=== PATIENT | female | born 1960 | race Caucasian/White ===

== ENCOUNTER 2016-12-29 20:19 | Emergency (ER) | payer BC ==
--- NOTE | 2016-12-29 21:25 | ERNOTE ---
Abdominal HPI - Narrative Date of Service: 12/29/16 - General Chief Complaint: Constipation Time Seen by Provider: 12/29/16 21:12 Source: patient Exam Limitations: no limitations - Immun/Allergies/Home Medications Immunizatons: IMMUNIZATION HX Immunizations Up to Date Yes History of Influenza Vaccine Yes Hx Pneumococcal Vaccination Yes Allergies/Adverse Reactions: Allergies Sulfa (Sulfonamide Antibiotics) Adverse Reaction (Verified 12/29/16 20:33) Home Medications: HOME MEDICATIONS Aspirin [Aspir-Low] 81 mg PO DAILY 12/29/16 [Last Taken Unknown] Calcium Carb/Vitamin D3/Vit K1 [Calcium + D Soft Chewable Tab] 1 each PO DAILY 12/29/16 [Last Taken Unknown] Cyclobenzaprine HCl [Flexeril] 10 mg PO TID PRN 12/29/16 [Last Taken Unknown] Metoprolol Succinate [Toprol Xl] 50 mg PO DAILY 12/29/16 [Last Taken Unknown] Tramadol HCl [Rybix Odt] 50 mg PO PRN PRN 12/29/16 [Last Taken Unknown] - History of Present Illness Narrative: Pt. comes in with c/o constipation that started approximately 6 hours ago when she had two small hard BMs and then still eels that she has to have a BM but is not able to pass any more stool. Pt. denies any NVD, fever, recent illness, hemorrhoids, abd. pain, or history of constipation. Pt. states that her LBM before today was yesterday and it was normal for her. Review of Systems - Review of Systems Constitutional: Present: no symptoms reported. Absent: recent illness, fever, chills, weakness, fatigue, malaise EYE: Present: no symptoms reported ENT: Present: no symptoms reported Respiratory: Present: no symptoms reported. Absent: shortness of breath, cough , wheezing Cardiology: Present: no symptoms reported. Absent: chest pain, palpitations, edema Gastrointestinal/Abdominal: Present: constipation. Absent: nausea, vomiting, diarrhea, abdominal pain Genitourinary: Present: no symptoms reported. Absent: frequency, pain, dysuria , decreased urinary output Musculoskeletal: Present: no symptoms reported. Absent: back pain, joint pain Skin: Present: no symptoms reported. Absent: rash, change in color Neurological: Present: no symptoms reported. Absent: headache, dizziness/light- headedness, weakness, numbness, tingling All Other Systems: All systems neg except as marked - Patient's Past Medical History Patient History - Medical: No pertinent hx Patient History - Cardiac/Respiratory: CPAP/BiPAP Home Use, Other Patient History - Cancer: No Hx of Cancer Patient History - Surgical Procedures: Cholecystectomy, Other Patient History - Other: None LMP (females 10-50): 15 years ago - Social History Living Situations: home Psych History: No pertinent hx Smoking Status: Never smoker Alcohol Use: none Drug Use: none - Immunizations Immunizations Up to Date: Yes Hx Pneumococcal Vaccination: Yes History of Influenza Vaccine: Yes Physical Exam - Physical Exam General Appearance: Present: wd/wn, alert, no apparent distress Head Exam: Present: normal inspection, no evidence of injury Eye Exam: Normal inspection: bilateral, PERRL: bilateral, EOMI: bilateral Ears, Nose, Throat: Present: normal ENT inspection, normal pharynx Neck: Present: normal inspection, nontender. Absent: lymphadenopathy (R), lymphadenopathy (L) Respiratory: Present: no respiratory distress, normal breath sounds, no accessory muscle use, chest nontender, lungs clear Cardiovascular/Chest: Present: regular rate, rhythm, no murmur, normal peripheral pulses Gastrointestinal/Abdominal: Present: normal bowel sounds, nontender, no organomegaly, distended Back Exam: Present: normal inspection, normal range of motion, no CVA tenderness , no vertebral tenderness Extremity Exam: Present: normal inspection, non-tender, normal range of motion, no edema Neurological Exam: Present: alert, oriented, normal mood/affect, no motor/ sensory deficits, 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 Absent: pallor, skin rash ED Progress - Vital Signs Patient's Vital Signs:: I have reviewed the patient's vital signs. Vital Signs: Vital Signs 12/29/16 20:24 Temperature 36.8 C Pulse Rate 81 Respiratory 16 Rate Blood Pressure 155/88 O2 Sat by Pulse 98 Oximetry - X-Ray X-Ray #1 X-Ray: abdomen Interpretation: Interp. by me X-ray Comments: severe stool retention - Progress/Reassessment Chief Complaint: Constipation Progress:: Unchanged - Transfer of Care Physician Sign Out: Bailey Nassar Receiving Physician: Caesar Thomas Expected Disposition: Discharge Departure - Departure Clinical Impression: Constipation Qualifiers: Constipation type: unspecified constipation type Qualified Code(s): K59.00 - Constipation, unspecified Disposition: Home self-care Condition: Good Instructions: Constipation, Adult, [id number] Additional Instructions: Please take bottle of magnesium citrate when you get home and start miralax daily starting tomorrow. Referrals: Mich Nicholas DO [Primary Care Provider] -
[2016-12-29] MEDS ORDERED: MAGNESIUM CITRATE 300 ML BTL PO ONE (22:06)
[2016-12-29] MEDS ORDERED: MAGNESIUM CITRATE 300 ML BTL ONE (22:55)
[2016-12-29 23:24] VITALS: BP 121/71
== END 2016-12-29 23:30 | disposition home or self-care (01) ==
LOC: ER 20:19
DX: K59.00 Constipation, unspecified (principal)